=== PATIENT | male | born 1990 | race American Indian/Alaskan Native ===

== ENCOUNTER 2018-07-18 11:48 | Emergency (ER) | payer OTHER ==
[2018-07-18] MEDS ORDERED: FLEXERIL PO ONE (14:38)
[2018-07-18] MEDS ORDERED: TORADOL IM ONE (14:38)
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
[2018-07-18 17:24] VITALS: BP 123/69
== END 2018-07-18 17:35 | disposition home or self-care (01) ==
LOC: ED 11:48
DX: S16.1XXA Strain of muscle, fascia and tendon at neck level, initial encounter (principal); M79.10 Myalgia, unspecified site; I10 Essential (primary) hypertension; V89.2XXA Person injured in unspecified motor-vehicle accident, traffic, initial encounter; Y93.89 Activity, other specified; Y92.89 Other specified places as the place of occurrence of the external cause; Y99.8 Other external cause status
CPT/HCPCS: 72040; 73562; 99283; J1885